=== PATIENT | male | born 1980 | race Caucasian/White ===

== ENCOUNTER 2017-03-11 14:40 | Emergency (ER) | payer MEDICAID, MEDICARE ==
[2017-03-11] MEDS ORDERED: Sodium Chloride 0.9% 1,000 ML IV ONE (14:47)
[2017-03-11] MEDS ORDERED: HYDROmorphone 1 MG/ML Syringe IVPUSH ONE ×3 (14:49→16:39)
[2017-03-11] MEDS ORDERED: Ondansetron 4 MG/2 ML SDV IV ONE (14:54)
--- NOTE | 2017-03-11 15:06 | EDM.PDOC ---
ED HPI GENERAL MEDICAL PROBLEM - General Chief Complaint: Abdominal Pain Stated Complaint: POSSIBLE BOWEL OBSTRUCTION Time Seen by Provider: 03/11/17 14:50 Source of Information: Reports: Patient History Limitations: Reports: No Limitations - History of Present Illness INITIAL COMMENTS - FREE TEXT/NARRATIVE: This 36 yo male patient reports to the ED with increased abdominal pain, cramping along with nausea/vomiting. The patient reports [place] area [place] [employer]. The patient reports a history of Crohn's with a 20 year history of intermittent abdominal problems. The patient reports he had scrambled eggs this morning, but has not had anything since breakfast. The patient reports he started to notice some abdominal pain. Within 30 minutes, the patient reports he could not even stand up. The patient's friends brought him to the ED. The patient's GI specialist is Dr. Wrihgt in [place]. Onset: Today Duration: Minutes:, Constant Location: Reports: Abdomen Quality: Reports: Ache, Sharp Severity: Severe Improves with: Reports: None Worsens with: Reports: None Associated Symptoms: Reports: Nausea/Vomiting Right Abdomen Pain Score (Numeric/FACES): 10 - Related Data Allergies Allergy/AdvReac Type Severity Reaction Status Date / Time morphine Allergy Itching Verified 03/11/17 14:44 Home Meds: Home Meds Cholecalciferol (Vitamin D3) [Vitamin D3] 2,000 unit PO DAILY 03/11/17 [History] Cyanocobalamin (Vitamin B12) [Vitamin B12] 1,000 mcg IM DAILY 03/11/17 [History] Folic Acid PO DAILY 03/11/17 [History] InFLIXimab [Remicade] 100 mg IV ASDIRECTED 03/11/17 [History] Iron PO DAILY 03/11/17 [History] Levothyroxine [Synthroid] PO DAILY 03/11/17 [History] Multivitamin [Men's Multi-Vitamin] 1 each PO DAILY 03/11/17 [History] Warfarin Sodium [Coumadin] 7.5 mg PO DAILY 03/11/17 [History] clonazePAM [Klonopin] 0.5 mg PO ASDIRECTED PRN 03/11/17 [History] oxyCODONE HCl/Acetaminophen [Percocet 5-325 mg Tablet] 1 each PO ASDIRECTED PRN 03/11/17 [History] Past Medical History HEENT History: Reports: None Cardiovascular History: Reports: None Respiratory History: Reports: None Gastrointestinal History: Reports: Bowel Obstruction, Other (See Below) Other Gastrointestinal History: Crohn's Genitourinary History: Reports: None Musculoskeletal History: Reports: Fracture Neurological History: Reports: None Psychiatric History: Reports: Anxiety Endocrine/Metabolic History: Reports: None Dermatologic History: Reports: None - Past Surgical History HEENT Surgical History: Reports: None Cardiovascular Surgical History: Reports: None Respiratory Surgical History: Reports: None Other GI Surgeries/Procedures: ileostomy and reversal Male Surgical History: Reports: None Endocrine Surgical History: Reports: None Neurological Surgical History: Reports: None Musculoskeletal Surgical History: Reports: None Social & Family History - Tobacco Use Smoking Status *Q: Current Every Day Smoker Years of Tobacco use: 18 Packs/Tins Daily: 0.5 - Caffeine Use Caffeine Use: Reports: Soda - Recreational Drug Use Recreational Drug Use: No ED ROS GENERAL - Review of Systems Review Of Systems: ROS reveals no pertinent complaints other than HPI. ED EXAM, GI/ABD - Physical Exam Exam: See Below Exam Limited By: No Limitations General Appearance: Alert, WD/WN, Severe Distress Eyes: Bilateral: Normal Appearance, EOMI Ears: Normal External Exam, Normal Canal, Hearing Grossly Normal, Normal TMs Nose: Normal Inspection, Normal Mucosa, No Blood Throat/Mouth: Normal Inspection, Normal Lips, Normal Teeth, Normal Gums, Normal Oropharynx, Normal Voice, No Airway Compromise Head: Atraumatic, Normocephalic Neck: Normal Inspection, Supple, Non-Tender, Full Range of Motion Respiratory/Chest: No Respiratory Distress, Lungs Clear, Normal Breath Sounds, No Accessory Muscle Use, Chest Non-Tender Cardiovascular: Normal Peripheral Pulses, Regular Rate, Rhythm, No Edema, No Gallop, No JVD, No Murmur, No Rub GI/Abdominal Exam: Normal Bowel Sounds, No Organomegaly, No Distention, No Abnormal Bruit, No Mass, Pelvis Stable, Tender (generalized tenderness) (Male) Exam: Deferred Rectal (Males) Exam: Deferred Back Exam: Normal Inspection, Full Range of Motion, NT Extremities: Normal Inspection, Normal Range of Motion, Non-Tender, Normal Capillary Refill, No Pedal Edema Neurological: Alert, Oriented, CN II-XII Intact, Normal Cognition, Normal Gait, Normal Reflexes, No Motor/Sensory Deficits Psychiatric: Normal Affect, Normal Mood Skin Exam: Warm, Dry, Intact, Normal Color, No Rash Lymphatic: No Adenopathy Course - Vital Signs Last Recorded V/S: Last Vital Signs Temp 37.3 C 03/11/17 16:05 Pulse 92 03/11/17 16:05 Resp 18 03/11/17 16:05 BP 102/72 03/11/17 16:05 Pulse Ox 92 L 03/11/17 16:05 - Orders/Labs/Meds Orders: Active Orders 24 hr Category Date Time Status CULTURE BLOOD [BC] Stat Lab 03/11/17 14:45 Received CULTURE BLOOD [BC] Stat Lab 03/11/17 15:30 Received UA W/MICROSCOPIC [URIN] Stat Lab 03/11/17 16:08 Ordered Sodium Chloride 0.9% [Normal Saline] 1,000 ml Med 03/11/17 14:47 Active IV .BOLUS Blood Culture x2 Reflex Set [OM.PC] Stat Oth 03/11/17 15:08 Ordered NG [Nasogastric Orogastric Tube Insertion] [OM.PC] Oth 03/11/17 16:18 Ordered Routine Medication Orders Sodium Chloride (Normal Saline) 1,000 mls @ 125 mls/hr IV .BOLUS ONE Stop: 03/11/17 22:46 Last Admin: 03/11/17 14:49 Dose: 125 mls/hr Labs: Laboratory Tests 03/11/17 03/11/17 03/11/17 Range/Units 14:45 14:45 14:45 WBC 15.8 H (5.0-10.0) 10^3/uL RBC 5.49 (4.6-6.2) 10^6/uL Hgb 16.2 (14.0-18.0) g/dL Hct 45.5 (40.0-54.0) % MCV 82.9 (80-100) fL MCH 29.5 (27.0-34.0) pg MCHC 35.6 H (33.0-35.0) g/dL Plt Count 277 (150-450) 10^3/uL Neut % (Auto) 74.1 (42.2-75.2) % Lymph % (Auto) 17.3 L (20.5-50.1) % [place] % (Auto) 7.6 (2-8) % Eos % (Auto) 0.9 L (1.0-3.0) % Baso % (Auto) 0.1 (0.0-1.0) % Sodium 138 (135-145) mmol/L Potassium 3.2 L (3.6-5.0) mmol/L Chloride 101 (101-111) mmol/L Carbon Dioxide 26.0 (21.0-31.0) mmol/L Anion Gap 14.2 BUN 8 (7-18) mg/dL Creatinine 1.1 (0.6-1.3) mg/dL Est Cr Clr Drug Dosing 99.94 mL/min Estimated GFR (MDRD) > 60 BUN/Creatinine Ratio 7.27 Glucose 92 (74-105) mg/dL Lactic Acid 1.1 (0.5-2.2) mmol/L Calcium 9.1 (8.4-10.2) mg/dl Total Bilirubin 0.6 (0.2-1.0) mg/dL AST 25 (10-42) IU/L ALT 9 L (10-60) IU/L Alkaline Phosphatase 67 (42-121) IU/L Total Protein 8.2 (6.7-8.2) g/dl Albumin 4.1 (3.2-5.5) g/dl Globulin 4.1 Albumin/Globulin Ratio 1.00 Urine Color (YELLOW) Urine Appearance (CLEAR) Urine pH (5.0-9.0) Ur Specific [place] (1.005-1.030) Urine Protein (NEGATIVE) Urine Glucose (UA) (NEGATIVE) Urine Ketones (NEGATIVE) Urine Occult Blood (NEGATIVE) Urine Nitrite (NEGATIVE) Urine Bilirubin (NEGATIVE) Urine Urobilinogen (0.2-1.0) mg/dL Ur Leukocyte Esterase (NEGATIVE) Urine Opiates Screen (NEGATIVE) Ur Oxycodone Screen (NEGATIVE) Urine Methadone Screen (NEGATIVE) Ur Barbiturates Screen (NEGATIVE) U Tricyclic Antidepress (NEGATIVE) Ur Phencyclidine Scrn (NEGATIVE) Ur Amphetamine Screen (NEGATIVE) U Methamphetamines Scrn (NEGATIVE) Urine MDMA Screen (NEGATIVE) U Benzodiazepines Scrn (NEGATIVE) Urine Cocaine Screen (NEGATIVE) U Marijuana (THC) Screen (NEGATIVE) 03/11/17 03/11/17 Range/Units 16:06 16:06 WBC (5.0-10.0) 10^3/uL RBC (4.6-6.2) 10^6/uL Hgb (14.0-18.0) g/dL Hct (40.0-54.0) % MCV (80-100) fL MCH (27.0-34.0) pg MCHC (33.0-35.0) g/dL Plt Count (150-450) 10^3/uL Neut % (Auto) (42.2-75.2) % Lymph % (Auto) (20.5-50.1) % [place] % (Auto) (2-8) % Eos % (Auto) (1.0-3.0) % Baso % (Auto) (0.0-1.0) % Sodium (135-145) mmol/L Potassium (3.6-5.0) mmol/L Chloride (101-111) mmol/L Carbon Dioxide (21.0-31.0) mmol/L Anion Gap BUN (7-18) mg/dL Creatinine (0.6-1.3) mg/dL Est Cr Clr Drug Dosing mL/min Estimated GFR (MDRD) BUN/Creatinine Ratio Glucose (74-105) mg/dL Lactic Acid (0.5-2.2) mmol/L Calcium (8.4-10.2) mg/dl Total Bilirubin (0.2-1.0) mg/dL AST (10-42) IU/L ALT (10-60) IU/L Alkaline Phosphatase (42-121) IU/L Total Protein (6.7-8.2) g/dl Albumin (3.2-5.5) g/dl Globulin Albumin/Globulin Ratio Urine Color Dark yellow (YELLOW) Urine Appearance Clear (CLEAR) Urine pH 6.0 (5.0-9.0) Ur Specific [place] 1.020 (1.005-1.030) Urine Protein 30 H (NEGATIVE) Urine Glucose (UA) Negative (NEGATIVE) Urine Ketones Negative (NEGATIVE) Urine Occult Blood Negative (NEGATIVE) Urine Nitrite Negative (NEGATIVE) Urine Bilirubin Negative (NEGATIVE) Urine Urobilinogen 0.2 (0.2-1.0) mg/dL Ur Leukocyte Esterase Negative (NEGATIVE) Urine Opiates Screen Positive H (NEGATIVE) Ur Oxycodone Screen Positive H (NEGATIVE) Urine Methadone Screen Negative (NEGATIVE) Ur Barbiturates Screen Negative (NEGATIVE) U Tricyclic Antidepress Negative (NEGATIVE) Ur Phencyclidine Scrn Negative (NEGATIVE) Ur Amphetamine Screen Negative (NEGATIVE) U Methamphetamines Scrn Negative (NEGATIVE) Urine MDMA Screen Negative (NEGATIVE) U Benzodiazepines Scrn Negative (NEGATIVE) Urine Cocaine Screen Negative (NEGATIVE) U Marijuana (THC) Screen Positive H (NEGATIVE) Meds: Medications Generic Name Dose Route Start Last Admin Trade Name Freq PRN Reason Stop Dose Admin Sodium Chloride 1,000 mls @ 125 mls/hr 03/11/17 14:47 03/11/17 14:49 Normal Saline IV 03/11/17 22:46 125 mls/hr .BOLUS ONE Administration Discontinued Medications Generic Name Dose Route Start Last Admin Trade Name Freq PRN Reason Stop Dose Admin Hydromorphone HCl 1 mg 03/11/17 14:49 03/11/17 14:55 Dilaudid IVPUSH 03/11/17 14:50 1 mg ONETIME ONE Administration Hydromorphone HCl 0.5 mg 03/11/17 15:36 03/11/17 15:40 Dilaudid IVPUSH 03/11/17 15:37 0.5 mg ONETIME ONE Administration Iopamidol 75 ml 03/11/17 15:17 03/11/17 15:23 Isovue-300 (61%) IVPUSH 03/11/17 15:18 75 ml ONETIME ONE Administration Ondansetron HCl 4 mg 03/11/17 14:54 03/11/17 14:57 Zofran IV 03/11/17 14:55 4 mg ONETIME ONE Administration - Re-Assessments/Exams Free Text/Narrative Re-Assessment/Exam: 03/11/17 15:06 During the examination, the patient vomited a large amount of greenish fluid. Departure - Departure Time of Disposition: 16:40 Disposition: DC/Tfer to Acute Hospital 02 Condition: Poor Clinical Impression: Small bowel obstruction - Discharge Information Forms: Interfacility Transfer EMTALA Care Plan Goals: Discussed the history, examination, lab, treatments and CT results with Dr. Soni (Hospitalist with [facility] in [place]). Dr. Soni accepted the patient for continued evaluation and further management. The patient will be transported by [facility]. - My Orders Last 24 Hours: My Active Orders 03/11/17 14:45 CULTURE BLOOD [BC] Stat 03/11/17 14:47 Sodium Chloride 0.9% [Normal Saline] 1,000 ml IV .BOLUS 03/11/17 15:08 Blood Culture x2 Reflex Set [OM.PC] Stat 03/11/17 15:30 CULTURE BLOOD [BC] Stat 03/11/17 16:08 UA W/MICROSCOPIC [URIN] Stat 03/11/17 16:18 NG [Nasogastric Orogastric Tube Insertion] [OM.PC] Routine - Assessment/Plan Last 24 Hours: My Active Orders 03/11/17 14:45 CULTURE BLOOD [BC] Stat 03/11/17 14:47 Sodium Chloride 0.9% [Normal Saline] 1,000 ml IV .BOLUS 03/11/17 15:08 Blood Culture x2 Reflex Set [OM.PC] Stat 03/11/17 15:30 CULTURE BLOOD [BC] Stat 03/11/17 16:08 UA W/MICROSCOPIC [URIN] Stat 03/11/17 16:18 NG [Nasogastric Orogastric Tube Insertion] [OM.PC] Routine
[2017-03-11 15:16] LABS: CHLORIDE,CL 101 mmol/L (101-111); SODIUM,NA 138 mmol/L (135-145)
[2017-03-11] MEDS ORDERED: Iopamidol 612 MG/ML 75 ML Bottle IVPUSH ONE (15:17)
== END 2017-03-11 17:07 ==
LOC: DL.ED 14:40
DX: K56.699 Other intestinal obstruction unspecified as to partial versus complete obstruction (principal); F17.210 Nicotine dependence, cigarettes, uncomplicated; Z88.5 Allergy status to narcotic agent; Z79.01 Long term (current) use of anticoagulants; Z79.899 Other long term (current) drug therapy
CPT/HCPCS: 36415; 74177; 80053; 80305; 81001; 83605; 85025; 87040; 96361; 96374; 96375; 96376; 99285; J1170; J2405; J7030; Q9967